=== PATIENT | female | born 1965 | race Caucasian/White ===

== ENCOUNTER 2017-04-15 10:26 | Emergency (ER) | payer BC ==
--- NOTE | 2017-04-15 11:11 | ERNOTE ---
Trauma/Assault HPI - Narrative Date of Service: 04/15/17 - General Stated Complaint: FALL-KNEE AND HAND PAIN Time Seen by Provider: 04/15/17 11:04 Source: patient, RN notes reviewed Exam Limitations: no limitations - Immun/Allergies/Home Medications Immunizations: IMMUNIZATION HX Immunizations Up to Date Yes History of Influenza Vaccine Yes Hx Pneumococcal Vaccination No Allergies/Adverse Reactions: Allergies No Known Allergies Allergy (Unverified 04/05/12 19:32) Home Medications: HOME MEDICATIONS Citalopram Hydrobromide [Celexa] 20 mg PO DAILY 04/05/12 [Last Taken Unknown] Ibuprofen 400 mg PO BID PRN 04/15/17 [Last Taken Unknown] Multivitamin [Multivitamins] 1 each PO DAILY 04/15/17 [Last Taken Unknown] - Pain Pain Score #1 Pain Score: 3 - Right hand and knee - History of Present Illness Date (Duration): 04/15/17 Narrative: 51 year old female presents to the ED from home by private vehicle for injuries due to a fall earlier this morning. She was standing on a stool that swivels while cleaning, when she lost her balance and fell to the floor. She landed on her right knee and caught herself with the right hand. She is having pain over her patella and in the heel of the hand that has been gradually getting worse since the incident. She declines any medication for pain. Location Occurred: Reports: home Pain Location: Reports: upper extremity, lower extremity Method of Injury: Reports: fall Severity: mild Loss of Consciousness: Reports: no loss of consciousness Review of Systems - Review of Systems Constitutional: Absent: recent illness, fever, malaise EYE: Present: no symptoms reported ENT: Present: no symptoms reported Respiratory: Absent: shortness of breath, cough Cardiology: Absent: chest pain, syncope Gastrointestinal/Abdominal: Absent: nausea, vomiting, abdominal pain Genitourinary: Present: no symptoms reported Musculoskeletal: Present: muscle stiffness, joint pain. Absent: back pain, neck pain, joint swelling Skin: Absent: lesions, lumps, change in color Neurological: Absent: headache, dizziness/light-headedness, weakness, numbness, tingling Endocrine: Present: no symptoms reported Hematologic/Lymphatic: Absent: easy bruising, easy bleeding Psych: Present: no symptoms reported - Patient's Past Medical History Patient History - Medical: Anxiety, Depression Patient History - Cardiac/Respiratory: COPD Patient History - Cancer: No Hx of Cancer Patient History - Surgical Procedures: Hysterectomy, T & A Patient History - Other: None - Social History Living Situations: spouse Psych History: Hx of Anxiety, Hx of Depression Smoking Status: Current every day smoker Have you smoked in the past 12 months: Yes Do you dip or chew tobacco: No Alcohol Use: rarely Drug Use: none - Immunizations Immunizations Up to Date: Yes Hx Pneumococcal Vaccination: No History of Influenza Vaccine: Yes Physical Exam - Physical Exam General Appearance: Present: wd/wn, alert, no apparent distress Head Exam: Present: normal inspection, no evidence of injury Neck: Present: normal inspection, nontender, supple, full range of motion Respiratory: Present: no respiratory distress, no accessory muscle use Cardiovascular/Chest: Present: normal peripheral pulses Extremity Exam: Present: normal range of motion, no edema, other - Tenderness over right patella and heel of right hand, no ecchymosis or deformity present. Absent: joint swelling, extremity edema Neurological Exam: Present: alert, oriented, normal mood/affect, no motor/ sensory deficits Skin Exam: Present: normal color, warm/dry ED Progress - Vital Signs Patient's Vital Signs:: I have reviewed the patient's vital signs. Vital Signs: Vital Signs 04/15/17 10:51 Temperature 36.7 C Pulse Rate 81 Respiratory 14 Rate Blood Pressure 123/80 O2 Sat by Pulse 96 Oximetry - X-Ray X-Ray #1 X-Ray: hand - Right Interpretation: Interp. by me X-ray Comments: No acute osseous abnormality noted X-Ray #2 X-Ray: knee - Right Interpretation: Interp. by me X-ray Comments: No acute osseous abnormality noted - Progress/Reassessment Chief Complaint: Fall Progress:: Unchanged Departure Clinical Impression: Fall Qualifiers: Encounter type: initial encounter Qualified Code(s): W19.XXXA - Unspecified fall, initial encounter Contusion of hand, right Qualifiers: Encounter type: initial encounter Qualified Code(s): S60.221A - Contusion of right hand, initial encounter Contusion of knee, right Qualifiers: Encounter type: initial encounter Qualified Code(s): S80.01XA - Contusion of right knee, initial encounter - Departure Disposition: Home self-care Condition: Good Instructions: Contusion, Kcae-by-Qsax Referrals: Lorelei Arceo MD [Primary Care Provider] - Critical Care Time - Critical Care Critical Time Spent:: No
[2017-04-15 11:55] VITALS: BP 126/74
== END 2017-04-15 11:56 | disposition home or self-care (01) ==
LOC: ER 10:26
DX: S80.01XA Contusion of right knee, initial encounter (principal); S60.221A Contusion of right hand, initial encounter; F17.200 Nicotine dependence, unspecified, uncomplicated; F32.9 Major depressive disorder, single episode, unspecified; W08.XXXA Fall from other furniture, initial encounter; Y93.E9 Activity, other interior property and clothing maintenance; Y92.009 Unspecified place in unspecified non-institutional (private) residence as the place of occurrence of the external cause
CPT/HCPCS: 73130; 73562; 99282

== ENCOUNTER 2019-01-29 19:42 | Inpatient (IN) ==
[2019-01-29] MEDS ORDERED: ALBUTEROL SULFATE/IPRATROPIUM 3 ML NEBU IH ONE (20:09)
[2019-01-29] MEDS ORDERED: METHYLPREDNISOLONE SOD SUCC/PF 125 MG/2 ML VIAL IV ONE (20:16)
--- NOTE | 2019-01-29 20:16 | ERNOTE ---
Dyspnea - General Presenting Symptoms: shortness of breath Time Seen by Provider: 01/29/19 19:58 Source: patient Exam Limitations: no limitations - Immun/Allergies/Home Medications Immunizations: IMMUNIZATION HX Immunizations Up to Date Yes History of Influenza Vaccine No Hx Pneumococcal Vaccination No Allergies/Adverse Reactions: Allergies No Known Allergies Allergy (Verified 11/07/18 14:19) Home Medications: HOME MEDICATIONS acetaminophen 325 mg tablet 325 mg PO Q6H PRN 11/15/17 [Last Taken Unknown] albuterol sulfate 2.5 mg/3 mL (0.083 %) solution for nebulization 2.5 mg IH Q4H PRN #90 ml 02/22/18 [Last Taken Unknown] nebulizers See Dose Instructions .ROUTE .MEDSUPPLY #1 ea 02/22/18 [Last Taken Unknown] varenicline 0.5 mg (11)-1 mg (42) tablets in a dose pack See Rx Instructions PO PER PKG DIR #53 tab 09/13/18 [Last Taken Unknown] varenicline 0.5 mg (11)-1 mg (42) tablets in a dose pack See Rx Instructions PO PER PKG DIR 10/07/18 [Last Taken Unknown] budesonide-formoterol HFA 80 mcg-4.5 mcg/actuation aerosol inhaler 2 inh IH BID #10.2 g 10/08/18 [Last Taken Unknown] methylprednisolone 4 mg tablets in a dose pack See Rx Instructions PO PER PKG DIR #21 tab 12/02/18 [Last Taken Unknown] citalopram 40 mg tablet 40 mg PO DAILY #90 tab 01/06/19 [Last Taken Unknown] levothyroxine 50 mcg tablet 50 mcg PO DAILY #90 tab 01/09/19 [Last Taken Unknown] clotrimazole 10 mg emeli 10 mg MUCOUS MEMBRANE 5XD #50 tab 01/13/19 [Last Taken Unknown] albuterol sulfate HFA 90 mcg/actuation aerosol inhaler See Rx Instructions .ROUTE .COMPLEX #25.5 gram 01/28/19 [Last Taken Unknown] - History of Present Illness Narrative: Patient states she began getting more short of breath on Sunday has progressed throughout the week. 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 Absent: recent illness, fever, chills EYE: Absent: vision changes ENT: Present: nose congestion, nasal drainage Respiratory: Present: See HPI Cardiology: Present: other - chest pressure Gastrointestinal/Abdominal: Present: nausea - after meals. Absent: vomiting, abdominal pain Genitourinary: Absent: frequency, dysuria Musculoskeletal: Absent: back pain, muscle pain Skin: Absent: rash Neurological: Absent: headache, dizziness/light-headedness Endocrine: Absent: excessive sweating Psych: Present: anxiety Medical History (Updated 03/06/18 @ 07:04 by Dayami Fry RN) COPD (chronic obstructive pulmonary disease) Asthma Onset Date: ~09/25/13 new Depression Onset Date: Unknown GERD (gastroesophageal reflux disease) Onset Date: Unknown positive h pylori infection treated 03/01 and resolved GERD after treatment Rosacea Onset Date: Unknown Sinusitis Onset Date: ~02/07/14 Abdominal pain Onset Date: ~10/19/11 Back pain Onset Date: ~09/09/12 Breast mass Onset Date: ~06/18/12 left Cough Onset Date: ~04/14/13 Dysuria Onset Date: ~04/04/12 Fatigue Onset Date: ~03/04/12 Hand contusion Onset Date: ~03/2012 left/ work related Pharyngitis Onset Date: ~02/28/12 Urinary incontinence Onset Date: ~03/19/14 Surgical History: Surgical History (Updated 03/08/18 @ 16:43 by Kiki Hester RN) H/O esophagogastroduodenoscopy Onset Date: 11/22/11 Bagan-TODD test, negative, negative for celiac disease, moderate chemical irritation H/O oophorectomy Onset Date: Unknown bilateral with hyst H/O: hysterectomy Onset Date: Unknown complete/ no ovaries History of appendectomy Onset Date: Unknown History of colonoscopy Onset Date: 03/06/181979's-Britton. 03/06/18 Bagan-tubular adenoma x2. Recheck 5 yrs. History of tonsillectomy Onset Date: Unknown Family History: Family History (Updated 02/05/18 @ 15:11 by Kiki Hester RN) Brother Alive and well x 7 Brother , x2 at No problems noted. Father , age 64-[place] Myocardial infarction age 64 Emphysema of lung Mother , age 84-lung ca Cancer lung cancer Myocardial infarction at age 82 Sister Cancer breast dx at age 40 Sister Alive and well 5 sisters Social History: (Last Reviewed 01/29/19 @ 20:14 by Eren Bloom DO) Social History: Marital status: household members: spouse number of children: 2 current occupational status: retired Service: No Tobacco: Smoking Status: Current every day smoker tobacco type: cigarettes Alcohol: alcohol intake: current alcohol intake frequency: holiday/special occasion Substance Use: substance use type: does not use Dietary Habits: caffeine: Yes Type: coffee Pets: pets and animals: dog(s) Personal Safety: victim of physical abuse: No victim of emotional abuse: No Physical Exam - Physical Exam General Appearance: Present: wd/wn, alert, mild distress, anxious Head Exam: Present: normal inspection, no evidence of injury Eye Exam: Normal inspection: bilateral Neck: Present: normal inspection, nontender, supple Respiratory: Present: decreased breath sounds, expiration (prolonged), wheezing Cardiovascular/Chest: Present: regular rate, rhythm, no murmur Gastrointestinal/Abdominal: Present: nontender, nondistended, soft Back Exam: Present: normal inspection, normal range of motion, no vertebral tenderness Extremity Exam: Present: normal inspection, normal range of motion, no edema Neurological Exam: Present: alert, oriented, normal mood/affect Skin Exam: Present: normal color, warm/dry Lymphatic Exam: Present: no adenopathy Progress - Results and Orders Patient's Lab Results:: I have reviewed the patient's lab results. Results and Orders: Laboratory Tests 01/29/19 01/29/19 01/29/19 20:30 20:40 20:40 WBC 13.5 H Hgb 15.0 Hct 45.2 Plt Count 339 pCO2 39.9 pO2 66.7 L HCO3 23.7 Total CO2 24.9 H Base Excess -1.1 ABG pH 7.39 ABG O2 Sat (Measured) 93.2 L Sodium 141 Potassium 4.0 Chloride 105 Carbon Dioxide 27.4 BUN 20 Creatinine 0.95 Random Glucose 106 Calcium 9.2 Total Bilirubin 0.2 AST 15 ALT 23 Alkaline Phosphatase 82 Troponin I Less than 0.017 B-Natriuretic Peptide 41 Total Protein 7.2 Albumin 3.6 - Vital Signs Patient's Vital Signs:: I have reviewed the patient's vital signs. - EKG EKG #1 EKG: NSR, nonspecific ST T wave changes EKG read: Interp. by me - X-Ray X-Ray #1 X-Ray: chest Interpretation: Interp. by me X-ray Comments: Hyperinflation. No infiltrate or effusion. No pneumothorax - Progress/Reassessment Progress Note-Subjective: 01/29/19 21:[address] Lord on-call for inpatient he agrees with admission to [facility] floor Departure Clinical Impression: Acute exacerbation of chronic obstructive airways disease - Departure Disposition: Still a patient Condition: Fair Referrals: Lorelei Arceo MD [Primary Care Provider] -
[2019-01-29 20:41] LABS: Hematocrit 45.2 % (37.0-47.0); Mean Cell Volume 92.8 fl (78-100); Mean Corpuscular Hemoglobin 30.8 pg (27-31); Mean Corpuscular Hgb Conc 33.2 g/dl (32-36); Mean Platelet Volume 9.2 fl (8-12.5); Neutrophil # 6.8 K/mm3 (1.3-6.0); Neutrophil % 50.3 % (42-75.0); Platelet Count 339 K/mm3 (150-450); Red Blood Count 4.87 M/mm3 (4.2-5.4); Red Cell Distribution Width 13.2 % (11.5-14.0); White Blood Count 13.5 K/mm3 (4.0-10.5)
[2019-01-29 21:01] LABS: ALT 23 U/L (19-67); AST 15 U/L (0-48); Albumin * 3.6 gm/dl (3.4-5.0); Alkaline Phosphatase * 82 U/L (50-170); Anion Gap 12.6 mmol/L (6.8-13.8); BNP * 41 pg/mL (5-205); BUN/Creatinine Ratio 21.1 (9.0-21.6); Bilirubin, Total 0.2 mg/dL (0.0-1.1); Blood Urea Nitrogen 20 mg/dL (3-23); Ca. Corrected For Albumin 9.2 mg/dL (8.4-10.2); Calcium * 9.2 mg/dL (7.9-10.9); Carbon Dioxide 27.4 mmol/L (24-32.6); Chloride 105 mmol/L (97-106); Glucose * 106 mg/dL (70-110); Sodium 141 mmol/L (132-142); Total Protein 7.2 gm/dL (6.2-8.2); Troponin I Less than 0.017 ng/mL (0.00-0.10)
[2019-01-30] MEDS ORDERED: ACETAMINOPHEN 325 MG TABLET PO PRN (08:44)
[2019-01-30] MEDS ORDERED: METHYLPREDNISOLONE 4 MG/TAB TAB.DS.PK PO SCH (08:45)
[2019-01-30] MEDS ORDERED: ALBUTEROL SULFATE 2.5 MG/0.5 ML VIAL.NEB IH PRN (08:45)
[2019-01-30] MEDS ORDERED: AZITHROMYCIN 250 MG TABLET PO ONE (08:50)
[2019-01-30] MEDS ORDERED: CLOTRIMAZOLE 10 MG TROCHE MM SCH (09:00)
--- NOTE | 2019-01-30 09:06 | HP ---
Chief Complaint - Chief Complaint Date of Service: 01/30/19 Time of Service: 08:30 Chief Complaint: dyspnea, acute exacerbation of copd, hypoxemia History of Present Illness: Augustina Ramírez is a 53-year-old female patient of Dr. Lorelei Arceo MD who has a long-standing history of COPD and nicotine abuse. She has recently started Chantix and is on the starter pack at this time. She has been smoking up until admission. She became acutely worse with her coughing and could not catch her breath with coughing. She came to the emergency room. She was given breathing treatments but her O2 sats did not improve much and without oxygen she was in the low 80 percentage range on her O2 sat. The chest x-ray does not show a pneumonia but does reflect her COPD. This morning she was taken off of her oxygen and desaturated to 84% and therefore failed oxygen weaning and is a regular admission now. She was given 1 g of Rocephin last night. I will continue that daily plus azithromycin. Medical History (Updated 01/29/19 @ 21:47 by Eren Bloom DO) COPD (chronic obstructive pulmonary disease) Asthma Onset Date: ~09/25/13 new Depression Onset Date: Unknown GERD (gastroesophageal reflux disease) Onset Date: Unknown positive h pylori infection treated 03/01 and resolved GERD after treatment Rosacea Onset Date: Unknown Sinusitis Onset Date: ~02/07/14 Abdominal pain Onset Date: ~10/19/11 Back pain Onset Date: ~09/09/12 Breast mass Onset Date: ~06/18/12 left Cough Onset Date: ~04/14/13 Dysuria Onset Date: ~04/04/12 Fatigue Onset Date: ~03/04/12 Hand contusion Onset Date: ~03/2012 left/ work related Pharyngitis Onset Date: ~02/28/12 Urinary incontinence Onset Date: ~03/19/14 Surgical History: Surgical History (Updated 03/08/18 @ 16:43 by Kiki Hester RN) H/O esophagogastroduodenoscopy Onset Date: 11/22/11 Bagan-TODD test, negative, negative for celiac disease, moderate chemical irritation H/O oophorectomy Onset Date: Unknown bilateral with hyst H/O: hysterectomy Onset Date: Unknown complete/ no ovaries History of appendectomy Onset Date: Unknown History of colonoscopy Onset Date: 03/06/18s-Britton. 03/06/18 Bagan-tubular adenoma x2. Recheck 5 yrs. History of tonsillectomy Onset Date: Unknown Family History: Family History (Updated 02/05/18 @ 15:11 by Kiki Hester RN) Brother Alive and well x 7 Brother , x2 at No problems noted. Father , age 64-[place] Myocardial infarction age 64 Emphysema of lung Mother , age 84-lung ca Cancer lung cancer Myocardial infarction at age 82 Sister Cancer breast dx at age 40 Sister Alive and well 5 sisters Social History: (Last Reviewed 01/29/19 @ 22:31 by Domenic Browning RN) Social History: Marital status: household members: spouse number of children: 2 current occupational status: retired Service: No Tobacco: Smoking Status: Current every day smoker tobacco type: cigarettes Alcohol: alcohol intake: current alcohol intake frequency: holiday/special occasion Substance Use: substance use type: does not use Dietary Habits: caffeine: Yes Type: coffee Pets: pets and animals: dog(s) Personal Safety: victim of physical abuse: No victim of emotional abuse: No Review Of Systems (GEN) - Review of Systems Generalized/Overall Review: Present: Malaise EENTM: Present: No Symptoms Reported Respiratory: Present: Cough, Shortness of Breath, Wheezing Cardiac: Present: No Symptoms Reported Abdominal: Present: No Symptoms Reported Genitourinary: Present: No Symptoms Reported Musculoskeletal: Present: No Symptoms Reported Neurological: Present: No Symptoms Reported Skin: Present: No Symptoms Reported Endocrine: Present: No Symptoms Reported Immunizations: IMMUNIZATION HX Immunizations Up to Date Yes History of Influenza Vaccine Yes Hx Pneumococcal Vaccination Yes Allergies/Adverse Reactions: Allergies Allergy/AdvReac Type Severity Reaction Status Date / Time No Known Allergies Allergy Verified 01/29/19 22:31 Home Medications: HOME MEDICATIONS acetaminophen 325 mg tablet 325 mg PO Q6H PRN 11/15/17 [Last Taken Unknown] albuterol sulfate 2.5 mg/3 mL (0.083 %) solution for nebulization 2.5 mg IH Q4H PRN #90 ml 02/22/18 [Last Taken Unknown] nebulizers See Dose Instructions .ROUTE .MEDSUPPLY #1 ea 02/22/18 [Last Taken Unknown] varenicline 0.5 mg (11)-1 mg (42) tablets in a dose pack See Rx Instructions PO PER PKG DIR #53 tab 09/13/18 [Last Taken Unknown] varenicline 0.5 mg (11)-1 mg (42) tablets in a dose pack See Rx Instructions PO PER PKG DIR 10/07/18 [Last Taken Unknown] budesonide-formoterol HFA 80 mcg-4.5 mcg/actuation aerosol inhaler 2 inh IH BID #10.2 g 10/08/18 [Last Taken Unknown] methylprednisolone 4 mg tablets in a dose pack See Rx Instructions PO PER PKG DIR #21 tab 12/02/18 [Last Taken Unknown] citalopram 40 mg tablet 40 mg PO DAILY #90 tab 01/06/19 [Last Taken Unknown] levothyroxine 50 mcg tablet 50 mcg PO DAILY #90 tab 01/09/19 [Last Taken Unknown] clotrimazole 10 mg emeli 10 mg MUCOUS MEMBRANE 5XD #50 tab 01/13/19 [Last Taken Unknown] albuterol sulfate HFA 90 mcg/actuation aerosol inhaler See Rx Instructions .ROUTE .COMPLEX #25.5 gram 01/28/19 [Last Taken Unknown] Exam - Exam Vital Signs: Vital Signs - Last Taken Temp 36.7 C 01/30/19 08:29 Pulse 67 01/30/19 08:29 Resp 20 01/30/19 08:29 BP 134/70 01/30/19 08:29 Pulse Ox 93 01/30/19 08:29 Constitutional: Present: Alert, Oriented x3, Cooperative, Well developed, Well nourished, Obese ENT Exam: Present: normal ENT inspection, hearing grossly normal Eye Exam: bilateral eye: normal inspection, PERRL, EOMI Neck: Present: non-tender, full range of motion, supple, normal inspection Back Exam: Present: normal inspection, no CVA tenderness, no vertebral tenderness Breasts: Present: Exam deferred Respiratory: Present: chest non-tender, decreased breath sounds, accessory muscle use, wheezing, expiration (prolonged), plerual rub Cardiovascular/Chest: Present: normal peripheral pulses, regular rate, rhythm, no chest tenderness, no edema, no gallop, no JVD, no murmur, no rub Peripheral Pulses: carotid (R): 2+, carotid (L): 2+, radial (R): 2+, radial (L): 2+ Abdomen: Present: Normal bowel sounds, soft, nontender, nondistended, no rebound tenderness, no hepatospenomegaly, no masses, obese /Rectal: Present: Exam deferred Extremity: Present: normal range of motion, non-tender, normal inspection, no pedal edema, no calf tenderness, normal capillary refill Skin Exam: Present: normal color, warm/dry, no cyanosis Lymphatic: Present: no adenopathy 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, normal cerebellar test, no motor/sensory deficits, alert, normal mood/affect, oriented x 3 Appearance: Present: appropriate appearance, appropriate insight, neat, no memory impairment Eye contact: Present: cooperative, good eye contact, normal speech, avoids eye contact Thoughts: Present: normal thought pattern, no apparent hallucination Diagnostic Studies: Abnormal Lab Results 01/29/19 01/29/19 Range/Units 20:30 20:40 WBC 13.5 H (4.0-10.5) K/mm3 Eosinophils % 5.9 H (0.0-3.0) % Neutrophils # 6.8 H (1.3-6.0) K/mm3 Lymphocytes # 4.79 H (1.5-3.5) k/mm3 Eosinophils # 0.8 H (0.0-0.7) k/mm3 pO2 66.7 L (83.0-108.0) mmHg Total CO2 24.9 H (19.0-24.0) mmol/L ABG O2 Sat (Measured) 93.2 L (94.0-98.0) % Laboratory Results WBC 13.5 K/mm3 (4.0-10.5) H 01/29/19 20:40 RBC 4.87 M/mm3 (4.2-5.4) 01/29/19 20:40 Hgb 15.0 gm/dL (12.5-16.0) 01/29/19 20:40 Hct 45.2 % (37.0-47.0) 01/29/19 20:40 MCV 92.8 fl (78-100) 01/29/19 20:40 MCH 30.8 pg (27-31) 01/29/19 20:40 MCHC 33.2 g/dl (32-36) 01/29/19 20:40 RDW 13.2 % (11.5-14.0) 01/29/19 20:40 Plt Count 339 K/mm3 (150-450) 01/29/19 20:40 MPV 9.2 fl (8-12.5) 01/29/19 20:40 Immature Gran % (Auto) 0.20 % (0.001-0.429) 01/29/19 20:40 Immature Gran # (Auto) 0.03 K/mm3 (0.000-0.0310) 01/29/19 20:40 50.3 % (42-75.0) 01/29/19 20:40 35.6 % (20-51) 01/29/19 20:40 7.3 % (0.0-9) 01/29/19 20:40 5.9 % (0.0-3.0) H 01/29/19 20:40 0.7 % (0.0-1.0) 01/29/19 20:40 Nucleated RBC % 0.0 k/mm3 (0-1) 01/29/19 20:40 6.8 K/mm3 (1.3-6.0) H 01/29/19 20:40 4.79 k/mm3 (1.5-3.5) H 01/29/19 20:40 1.0 k/mm3 (0.0-1.0) 01/29/19 20:40 0.8 k/mm3 (0.0-0.7) H 01/29/19 20:40 Absolute Basophils 0.1 k/mm3 (0.0-0.1) 01/29/19 20:40 pCO2 39.9 mmHg (32.0-45.0) 01/29/19 20:30 pO2 66.7 mmHg (83.0-108.0) L 01/29/19 20:30 HCO3 23.7 mmol/L (21.0-28.0) 01/29/19 20:30 Total CO2 24.9 mmol/L (19.0-24.0) H 01/29/19 20:30 Base Excess -1.1 mmol/L (-2.0-3.0) 01/29/19 20:30 ABG pH 7.39 (7.35-7.45) 10/02/19 20:30 ABG O2 Sat (Measured) 93.2 % (94.0-98.0) L 01/29/19 20:30 Sodium 141 mmol/L (132-142) 01/29/19 20:40 141 mmol/L (130-142) 01/29/19 20:40 Potassium 4.0 mmol/L (3.4-4.6) 01/29/19 20:40 Chloride 105 mmol/L (97-106) 01/29/19 20:40 Carbon Dioxide 27.4 mmol/L (24-32.6) 01/29/19 20:40 12.6 mmol/L (6.8-13.8) 01/29/19 20:40 BUN 20 mg/dL (3-23) 01/29/19 20:40 0.95 mg/dL (0.4-1.4) 01/29/19 20:40 Est GFR (Non-Af Amer) 65 mL/min (60-130) 01/29/19 20:40 21.1 (9.0-21.6) 01/29/19 20:40 106 mg/dL (70-110) 01/29/19 20:40 Calcium 9.2 mg/dL (7.9-10.9) 01/29/19 20:40 Calcium Adj for Albumin 9.2 mg/dL (8.4-10.2) 01/29/19 20:40 0.2 mg/dL (0.0-1.1) 01/29/19 20:40 AST 15 U/L (0-48) 01/29/19 20:40 ALT 23 U/L (19-67) 01/29/19 20:40 82 U/L (50-170) 01/29/19 20:40 Less than 0.017 ng/mL (0.00-0.10) 01/29/19 20:40 B-Natriuretic Peptide 41 pg/mL (5-205) 01/29/19 20:40 7.2 gm/dL (6.2-8.2) 01/29/19 20:40 3.6 gm/dl (3.4-5.0) 01/29/19 20:40 Assessment/Plan - Narrative Narrative: 1. Continue respiratory therapy nebulizer treatments 2. Continue IV Rocephin 3. Add a azithromycin 4. Up ad lucrecia. 5. Tylenol with codeine elixir 2 teaspoons every 6 hours as needed cough - Assessment/Plan (1) Acute exacerbation of chronic obstructive airways disease Problem: Acute (2) Hypoxemia Problem: Acute (3) COPD (chronic obstructive pulmonary disease) with chronic bronchitis Problem: Acute (4) Nicotine abuse Problem: Chronic (5) Encounter for smoking cessation counseling Problem: Acute
[2019-01-30] MEDS ORDERED: ALBUTEROL SULFATE 200 PUFF INHALER IH PRN (09:15)
[2019-01-30] MEDS: CITALOPRAM HYDROBROMIDE 20 MG TABLET PO SCH (09:36)
[2019-01-30] MEDS: VARENICLINE TARTRATE 0.5 MG PO SCH ×2 (09:36→20:37)
[2019-01-30] MEDS: LEVOTHYROXINE SODIUM 50 MCG TABLET PO SCH (09:36)
[2019-01-30] MEDS: ALBUTEROL SULFATE 2.5 MG/0.5 ML VIAL.NEB IH PRN ×3 (09:41→20:57)
[2019-01-30] MEDS ORDERED: METHYLPREDNISOLONE SOD SUCC/PF 125 MG/2 ML VIAL IV SCH (21:00)
[2019-01-30] MEDS ORDERED: NICOTINE 21 MG PATC TD SCH (21:30)
[2019-01-31] MEDS: ALBUTEROL SULFATE 2.5 MG/0.5 ML VIAL.NEB IH PRN (07:09)
[2019-01-31] MEDS ORDERED: METHYLPREDNISOLONE SOD SUCC 250 MG in NORMAL SALINE 50 ML IV SCH (09:00)
[2019-01-31] MEDS ORDERED: METHYLPREDNISOLONE SOD SUCC 250 MG in NORMAL SALINE 50 ML IJ SCH (09:00)
[2019-01-31] MEDS ORDERED: AZITHROMYCIN 250 MG TABLET PO SCH (09:00)
[2019-01-31] MEDS: LEVOTHYROXINE SODIUM 50 MCG TABLET PO SCH (09:27)
[2019-01-31] MEDS: CITALOPRAM HYDROBROMIDE 20 MG TABLET PO SCH (09:27)
[2019-01-31] MEDS: VARENICLINE TARTRATE 0.5 MG PO SCH (09:28)
--- NOTE | 2019-01-31 16:26 | DS ---
(1) Acute exacerbation of chronic obstructive airways disease Problem: Acute (2) Hypoxemia Problem: Acute (3) COPD (chronic obstructive pulmonary disease) with chronic bronchitis Problem: Acute (4) Nicotine abuse Problem: Chronic (5) Encounter for smoking cessation counseling Problem: Acute Date of Discharge:: 01/31/19 Description of Stay: Augustina Ramírez is a 53-year-old female who presented to the emergency room in respiratory distress. She was admitted with acute respiratory failure with hypoxia as evidenced by saturations 84 to 81% on room air. Respirations were labored at 22 breaths/min with diffuse wheezing. Her oxygen saturation improved on 2 L nasal cannula O2. She has received respiratory therapy treatments 4 times a day. I started her on Solu-Medrol and using a Janet which has helped mobilize a lot of mucus. She was started on Rocephin in the ER and I continued that 1 g daily. I also start her on azithromycin. She will finish the course of antibiotics at home. Today she her lungs are much later and she is moving much more air. She was able to walk in the halls today for the first time without oxygen desaturation below 90% while walking on room air. She was able to get up and shower for 15 minutes without feeling dyspneic. She is feeling much improved now. Her disposition is improved and her prognosis is good. Procedures Performed: none Results and Findings: Pending Mircobiology Results 01/31/19 06:29 Expectorate Sputum Sputum Culture - Preliminary Lab Pending Results 01/29/19 20:30: pCO2 39.9, pO2 66.7 L, HCO3 23.7, Total CO2 24.9 H, Base Excess -1.1, ABG pH 7.39, ABG O2 Sat (Measured) 93.2 L 01/29/19 20:40: WBC 13.5 H, RBC 4.87, Hgb 15.0, Hct 45.2, MCV 92.8, MCH 30.8, MCHC 33.2, RDW 13.2, Plt Count 339, MPV 9.2, Immature Gran % (Auto) 0.20, Immature Gran # (Auto) 0.03, Neutrophils % 50.3, Lymphocytes % 35.6, Monocytes % 7.3, Eosinophils % 5.9 H, Basophils % 0.7, Nucleated RBC % 0.0, Neutrophils # 6.8 H, Lymphocytes # 4.79 H, Monocytes # 1.0, Eosinophils # 0.8 H, Absolute Basophils 0.1 01/29/19 20:40: Sodium 141, Plasma Sodium 141, Potassium 4.0, Chloride 105, Carbon Dioxide 27.4, Anion Gap 12.6, BUN 20, Creatinine 0.95, Est GFR (Non-Af Amer) 65, BUN/Creatinine Ratio 21.1, Random Glucose 106, Calcium 9.2, Calcium Adj for Albumin 9.2, Total Bilirubin 0.2, AST 15, ALT 23, Alkaline Phosphatase 82, Troponin I Less than 0.017, B-Natriuretic Peptide 41, Total Protein 7.2, Albumin 3.6 Discharge Location: Home Disposition: Home self-care Condition: Fair Face to Face Encounter completed per [facility] Guidelines: No Discharge Activity: Activity as tolerated Discharge Diet: General/regular food Referrals: Lorelei Arceo MD [Primary Care Provider] - Additional Patient Instructions (free text): Use the Janet several times daily. Do nebulizer treatments with albuterol and normal saline 4 times a day and every 4 hours as needed See PCP within the next 2 weeks. Complete Home Medications List: Complete Home Medication List: acetaminophen 325 mg tablet 325 mg PO Q6H PRN 11/15/17 albuterol sulfate 2.5 mg/3 mL (0.083 %) solution for nebulization 2.5 mg IH Q4H PRN #90 ml 02/22/18 nebulizers See Dose Instructions .ROUTE .MEDSUPPLY #1 ea 02/22/18 budesonide-formoterol HFA 80 mcg-4.5 mcg/actuation aerosol inhaler 2 inh IH BID #10.2 g 10/08/18 citalopram 40 mg tablet 40 mg PO DAILY #90 tab 01/06/19 levothyroxine 50 mcg tablet 50 mcg PO DAILY #90 tab 01/09/19 albuterol sulfate HFA 90 mcg/actuation aerosol inhaler See Rx Instructions .ROUTE .COMPLEX #25.5 gram 01/28/19 Acetaminophen With Codeine [Tylenol with Codeine Elixir] 10 ml PO Q6H PRN #120 udc 01/31/19 Azithromycin 250 mg PO DAILY #3 tab 01/31/19 Azithromycin [Zithromax] 250 mg PO DAILY #3 tab 01/31/19 Cefuroxime Axetil [Ceftin] 500 mg PO BID #14 tab 01/31/19 predniSONE [Prednisone] 10 mg PO DAILY #30 tab 01/31/19
[2019-01-31 17:04] VITALS: BP 126/73
== END 2019-01-31 17:07 | disposition home or self-care (01) | DRG 190 ==
LOC: ER 19:42 → MS 21:48
PROVIDERS: ADMIT Family Medicine; ATTEND Family Medicine
CPT/HCPCS: 36415; 36600; 71020; 71046; 80053; 82803; 83519; 83880; 84484; 85025; 87070; 93005; 94640; 94664; 94760; 96374; 99284